=== PATIENT | male | born 2000 | race Two or more races ===

== ENCOUNTER 2020-06-20 23:31 | Emergency (ER) | payer SELFPAY ==
[~2020-06-20] VITALS: Ht 175.3 cm; Wt 82.0 kg
[2020-06-21 03:45] VITALS: BP 135/62
== END 2020-06-21 04:25 | disposition home or self-care (01) ==
LOC: ER 23:31
DX: F11.188 Opioid abuse with other opioid-induced disorder (principal); F43.0 Acute stress reaction; R00.0 Tachycardia, unspecified; I10 Essential (primary) hypertension; F12.90 Cannabis use, unspecified, uncomplicated
CPT/HCPCS: 93005; 99281

== ENCOUNTER 2020-08-07 22:30 | Emergency (ER) | payer OTHER ==
[~2020-08-07] VITALS: Ht 175.3 cm; Wt 95.0 kg
[2020-08-07 23:30] VITALS: BP 121/69
== END 2020-08-07 23:37 ==
LOC: ER 22:30
DX: Z02.89 Encounter for other administrative examinations (principal); F11.10 Opioid abuse, uncomplicated; F12.10 Cannabis abuse, uncomplicated; R03.0 Elevated blood-pressure reading, without diagnosis of hypertension
CPT/HCPCS: 99283

== ENCOUNTER 2020-12-04 12:25 | Emergency (ER) | payer OTHER, SELFPAY ==
[~2020-12-04] VITALS: Ht 182.9 cm; Wt 86.0 kg
[2020-12-04 13:06] VITALS: BP 125/59
[2020-12-04] MEDS ORDERED: ACETAMINOPHEN 325MG TABLET PO STA (13:08)
[2020-12-04] MEDS ORDERED: PIPERACILLIN/TAZ 3.375G PREMIX 50 ML IV ONE (13:15)
[2020-12-04 13:19] LABS: HEMATOCRIT. 36.9 % (42.0-52.0); HEMOGLOBIN. 12.3 g/dL (14.0-18.0); MEAN CORPUSCULAR HEMOGLOBIN 28.7 pg (28.0-32.0); MEAN CORPUSCULAR VOLUME 86.2 fL (80.0-94.0); MEAN PLATELET VOLUME 8.2 fl (7.4-10.4); PLATELET 289 x1000/uL (130-400); RED BLOOD CELL COUNT 4.28 mill/uL (4.7-6.1); RED CELL DISTRIBUTION WIDTH 13.2 % (11.6-14.6)
[2020-12-04 13:22] LABS: CHLORIDE 101 mEq/L (98-107)
[2020-12-04 13:26] LABS: INR 1.1; PROTHROMBIN TIME 11.6 sec (9.6-11.0)
[2020-12-04] MEDS ORDERED: ONDANSETRON HCL 4MG/2ML INJ IV ONE (13:30)
[2020-12-04 13:43] LABS: PLATELET ESTIMATE NORMAL
[2020-12-04] MEDS ORDERED: SODIUM CHLORIDE 0.9% 1,000 ML IV ONE (13:45)
[2020-12-04] MEDS ORDERED: POTASSIUM CHLORIDE 20MEQ TABLET SR PO NR (14:15)
== END 2020-12-04 14:29 | disposition left against medical advice (07) ==
LOC: ER 12:25 → CANBEDREQ 16:14
DX: A41.9 Sepsis, unspecified organism (principal); E87.6 Hypokalemia; Z20.822 Contact with and (suspected) exposure to COVID-19
CPT/HCPCS: 36415; 71045; 80053; 82728; 83690; 84145; 84484; 85025; 85610; 86140; 96374; 99291; J2405; Z7610

== ENCOUNTER 2021-03-01 03:26 | Emergency (ER) | payer SELFPAY ==
[~2021-03-01] VITALS: Ht 177.8 cm; Wt 82.0 kg
[2021-03-01 03:40] VITALS: BP 144/88
[2021-03-01] MEDS ORDERED: NALO4SPR BOTHNSTRLS (05:04)
== END 2021-03-01 05:15 ==
LOC: ER 03:31
DX: F11.10 Opioid abuse, uncomplicated (principal); F12.10 Cannabis abuse, uncomplicated
CPT/HCPCS: 99283

== ENCOUNTER 2021-04-21 15:33 | Emergency (ER) | payer SELFPAY ==
[~2021-04-21] VITALS: Ht 170.2 cm; Wt 82.0 kg
[~2021-04-21 15:33] MED LIST: NALO4SPR BOTHNSTRLS
[2021-04-21 15:34] VITALS: BP 136/86
[2021-04-21] MEDS ORDERED: SODIUM CHLORIDE 0.9% 1,000 ML IV ONE (15:45)
[2021-04-21 16:09] LABS: CLARITY URINE CLEAR (CLEAR); COLOR URINE YELLOW (YELLOW); KETONES URINE NEGATIVE (NEGATIVE); LEUKOCYTE ESTERASE URINE NEGATIVE (NEGATIVE); NITRITE URINE NEGATIVE (NEGATIVE); OCCULT BLOOD URINE NEGATIVE (NEGATIVE); PROTEIN URINE 1+ (NEGATIVE); SPECIFIC GRAVITY URINE 1.026 (1.005-1.030); UROBILINOGEN URINE 0.2 E.U./dL (0.2-1.0)
[2021-04-21 16:32] LABS: *AMPHETAMINES SCREEN URINE NEGATIVE (NEGATIVE); *BARBITURATES SCREEN URINE NEGATIVE (NEGATIVE); *BENZODIAZEPINES SCREEN URINE NEGATIVE (NEGATIVE); *COCAINE SCREEN URINE NEGATIVE (NEGATIVE); METHADONE URINE SCREEN NEGATIVE (NEGATIVE); OPIATES URINE SCREEN NEGATIVE (NEGATIVE)
[2021-04-21 16:33] LABS: CANNABINOID URINE SCREEN NEGATIVE (NEGATIVE); PHENCYCLIDINE URINE SCREEN NEGATIVE (NEGATIVE)
== END 2021-04-21 16:37 | disposition left against medical advice (07) ==
LOC: ER 15:33
DX: F19.10 Other psychoactive substance abuse, uncomplicated (principal); F12.10 Cannabis abuse, uncomplicated
CPT/HCPCS: 80305; 81003; 93005; 99284; J7030

== ENCOUNTER 2021-08-09 21:06 | Emergency (ER) | payer SELFPAY ==
[~2021-08-09] VITALS: Ht 167.6 cm; Wt 70.0 kg
[2021-08-09 21:18] VITALS: BP 150/100
[2021-08-10] MEDS ORDERED: NALO4SPR BOTHNSTRLS (00:39)
== END 2021-08-10 05:08 | disposition home or self-care (01) ==
LOC: ER 21:06
DX: R51.9 Headache, unspecified (principal); Z91.81 History of falling; F11.10 Opioid abuse, uncomplicated; R03.0 Elevated blood-pressure reading, without diagnosis of hypertension
CPT/HCPCS: 99283

== ENCOUNTER 2021-11-19 03:22 | Emergency (ER) | payer SELFPAY ==
[~2021-11-19] VITALS: Ht 172.7 cm; Wt 71.0 kg
[2021-11-19 03:32] VITALS: BP 132/82
== END 2021-11-19 04:00 ==
LOC: ER 03:22
DX: M25.512 Pain in left shoulder (principal); R03.0 Elevated blood-pressure reading, without diagnosis of hypertension
CPT/HCPCS: 99283

== ENCOUNTER 2021-12-23 19:35 | Emergency (ER) | payer SELFPAY ==
[~2021-12-23] VITALS: Ht 172.7 cm; Wt 73.0 kg
[2021-12-23 19:36] VITALS: BP 135/85
== END 2021-12-23 21:11 | disposition left against medical advice (07) ==
LOC: ER 19:35
DX: T40.2X1A Poisoning by other opioids, accidental (unintentional), initial encounter (principal); R06.09 Other forms of dyspnea; F11.229 Opioid dependence with intoxication, unspecified; Y92.018 Other place in single-family (private) house as the place of occurrence of the external cause
CPT/HCPCS: 99283

== ENCOUNTER 2021-12-28 06:30 | Emergency (ER) | payer SELFPAY ==
[~2021-12-28] VITALS: Ht 177.8 cm; Wt 100.0 kg
[2021-12-28 09:08] LABS: BASOPHILS % 0.3 % (0.0-2.0); EOSINOPHILS % 0.4 % (0.0-5.0); HEMATOCRIT. 36.8 % (42.0-52.0); HEMOGLOBIN. 12.8 g/dL (14.0-18.0); LYMPHOCYTES % 11.8 % (20.0-50.0); MEAN CORPUSCULAR HEMOGLOBIN 31.1 pg (28.0-32.0); MEAN CORPUSCULAR VOLUME 89.2 fL (80.0-94.0); MEAN PLATELET VOLUME 7.8 fl (7.4-10.4); MONOCYTES % 9.3 % (2.0-8.0); NEUTROPHILS % 78.2 % (40.0-76.0); PLATELET 244 x1000/uL (130-400); RED BLOOD CELL COUNT 4.13 mill/uL (4.7-6.1); RED CELL DISTRIBUTION WIDTH 14.6 % (11.6-14.6)
[2021-12-28 09:12] LABS: CHLORIDE 100 mEq/L (98-107)
[2021-12-28 09:20] LABS: ETHANOL BLOOD < 10 mg/dL
[2021-12-28 10:15] LABS: CLARITY URINE CLEAR (CLEAR); COLOR URINE YELLOW (YELLOW); KETONES URINE NEGATIVE (NEGATIVE); LEUKOCYTE ESTERASE URINE NEGATIVE (NEGATIVE); NITRITE URINE NEGATIVE (NEGATIVE); OCCULT BLOOD URINE NEGATIVE (NEGATIVE); PROTEIN URINE 1+ (NEGATIVE); UROBILINOGEN URINE 0.2 E.U./dL (0.2-1.0)
[2021-12-28 10:59] LABS: *AMPHETAMINES SCREEN URINE PRESUMTIVE POSITIVE (NEGATIVE); *BARBITURATES SCREEN URINE NEGATIVE (NEGATIVE); *BENZODIAZEPINES SCREEN URINE NEGATIVE (NEGATIVE); *COCAINE SCREEN URINE NEGATIVE (NEGATIVE); CANNABINOID URINE SCREEN NEGATIVE (NEGATIVE); METHADONE URINE SCREEN NEGATIVE (NEGATIVE); OPIATES URINE SCREEN NEGATIVE (NEGATIVE); PHENCYCLIDINE URINE SCREEN NEGATIVE (NEGATIVE)
[2021-12-28] MEDS ORDERED: NALO4SPR BOTHNSTRLS (12:18)
[2021-12-28 16:56] VITALS: BP 116/68
== END 2021-12-28 17:01 | disposition home or self-care (01) ==
LOC: ER 06:30
DX: T40.411A Poisoning by fentanyl or fentanyl analogs, accidental (unintentional), initial encounter (principal); R07.89 Other chest pain; F11.129 Opioid abuse with intoxication, unspecified; F15.10 Other stimulant abuse, uncomplicated; F17.210 Nicotine dependence, cigarettes, uncomplicated; Y93.89 Activity, other specified; Y92.488 Other paved roadways as the place of occurrence of the external cause
CPT/HCPCS: 36415; 71045; 80053; 80305; 80320; 81003; 85025; 99285; G0480

== ENCOUNTER 2021-12-31 19:09 | Emergency (ER) | payer SELFPAY ==
[~2021-12-31] VITALS: Ht 172.7 cm; Wt 73.0 kg
[2021-12-31 19:17] VITALS: BP 138/83
[2021-12-31] MEDS ORDERED: SODIUM CHLORIDE 0.9% 1,000 ML IV ONE (19:45)
== END 2021-12-31 19:26 | disposition left against medical advice (07) ==
LOC: ER 19:14
DX: T40.411A Poisoning by fentanyl or fentanyl analogs, accidental (unintentional), initial encounter (principal); R41.82 Altered mental status, unspecified; F11.129 Opioid abuse with intoxication, unspecified; Y92.89 Other specified places as the place of occurrence of the external cause; Z88.0 Allergy status to penicillin; F12.90 Cannabis use, unspecified, uncomplicated
CPT/HCPCS: 99281; J7030

== ENCOUNTER 2022-01-13 23:48 | Emergency (ER) | payer MEDICAID ==
[~2022-01-13] VITALS: Ht 177.8 cm; Wt 91.0 kg
[2022-01-14 02:27] LABS: CHLORIDE 107 mEq/L (98-107)
[2022-01-14 02:31] LABS: BASOPHILS % 0.4 % (0.0-2.0); EOSINOPHILS % 0.1 % (0.0-5.0); HEMATOCRIT. 35.1 % (42.0-52.0); LYMPHOCYTES % 12.8 % (20.0-50.0); MEAN CORPUSCULAR HEMOGLOBIN 30.3 pg (28.0-32.0); MEAN CORPUSCULAR VOLUME 88.9 fL (80.0-94.0); MEAN PLATELET VOLUME 7.9 fl (7.4-10.4); MONOCYTES % 9.5 % (2.0-8.0); NEUTROPHILS % 77.2 % (40.0-76.0); PLATELET 287 x1000/uL (130-400); RED BLOOD CELL COUNT 3.95 mill/uL (4.7-6.1); RED CELL DISTRIBUTION WIDTH 13.9 % (11.6-14.6)
[2022-01-14 02:35] LABS: ETHANOL BLOOD < 10 mg/dL
[2022-01-14] MEDS ORDERED: ACETAMINOPHEN 500MG TABLET PO ONE (03:00)
[2022-01-14 03:21] LABS: CLARITY URINE CLEAR (CLEAR); COLOR URINE DARK YELLOW (YELLOW); KETONES URINE NEGATIVE (NEGATIVE); LEUKOCYTE ESTERASE URINE NEGATIVE (NEGATIVE); NITRITE URINE NEGATIVE (NEGATIVE); OCCULT BLOOD URINE NEGATIVE (NEGATIVE); PROTEIN URINE 2+ (NEGATIVE); SPECIFIC GRAVITY URINE 1.027 (1.005-1.030); UROBILINOGEN URINE 0.2 E.U./dL (0.2-1.0)
[2022-01-14 03:47] VITALS: BP 100/60
[2022-01-14] MEDS ORDERED: NALO4SPR BOTHNSTRLS (04:00)
[2022-01-14 04:10] LABS: *AMPHETAMINES SCREEN URINE NEGATIVE (NEGATIVE); *BARBITURATES SCREEN URINE NEGATIVE (NEGATIVE); *BENZODIAZEPINES SCREEN URINE NEGATIVE (NEGATIVE); *COCAINE SCREEN URINE NEGATIVE (NEGATIVE); CANNABINOID URINE SCREEN PRESUMTIVE POSITIVE (NEGATIVE); METHADONE URINE SCREEN NEGATIVE (NEGATIVE); OPIATES URINE SCREEN NEGATIVE (NEGATIVE); PHENCYCLIDINE URINE SCREEN NEGATIVE (NEGATIVE)
== END 2022-01-14 04:29 | disposition home or self-care (01) ==
LOC: ER 23:48
DX: T40.411A Poisoning by fentanyl or fentanyl analogs, accidental (unintentional), initial encounter (principal); F11.129 Opioid abuse with intoxication, unspecified; R41.82 Altered mental status, unspecified; R03.0 Elevated blood-pressure reading, without diagnosis of hypertension; F12.90 Cannabis use, unspecified, uncomplicated; Y92.017 Garden or yard in single-family (private) house as the place of occurrence of the external cause
CPT/HCPCS: 36415; 80053; 80305; 80320; 81003; 85025; 99283; G0480

== ENCOUNTER 2023-05-11 14:58 | Emergency (ER) | payer MEDICAID ==
[~2023-05-11] VITALS: Ht 175.3 cm; Wt 64.0 kg
[2023-05-11 15:10] VITALS: BP 142/80; PULSE 104; RESP 16; TEMP 97.8; O2SAT 97
[2023-05-11] MEDS: CLONIDINE 0.1MG TABLET PO ONE (15:15)
[2023-05-11] MEDS: ONDANSETRON 4MG ODT PO ONE (15:15)
[2023-05-11 15:39] LABS: BASOPHILS % 0.3 % (0.0-2.0); HEMATOCRIT. 37.7 % (42.0-52.0); HEMOGLOBIN. 12.8 g/dL (14.0-18.0); LYMPHOCYTES % 16.2 % (20.0-50.0); MEAN CORPUSCULAR VOLUME 85.3 fL (80.0-94.0); MEAN PLATELET VOLUME 7.7 fl (7.4-10.4); MONOCYTES % 3.8 % (2.0-8.0); NEUTROPHILS % 79.7 % (40.0-76.0); PLATELET 295 x1000/uL (130-400); RED BLOOD CELL COUNT 4.42 mill/uL (4.7-6.1); WHITE BLOOD COUNT 6.6 x1000/uL (4.5-11.0)
[2023-05-11 15:56] LABS: ALANINE AMINOTRANSFERASE 11 IU/L (10-49); ALBUMIN 4.9 g/dL (3.2-4.8); ASPARTATE AMINOTRANSFERASE 20 IU/L (<34); BILIRUBIN TOTAL 1.8 mg/dL (0.1-1.0); CALCIUM 9.3 mg/dL (8.7-10.4); CARBON DIOXIDE 30 mEq/L (21-32); CHLORIDE 101 mEq/L (98-107); CREATININE 0.8 mg/dL (0.6-1.3); GLUCOSE 118 mg/dL (70-105); POTASSIUM 3.7 mEq/L (3.5-5.1); PROTEIN TOTAL 7.2 g/dL (6.0-8.3); SODIUM 136 mEq/L (136-145); UREA NITROGEN BLOOD 9 mg/dL (9-23)
[2023-05-11 16:03] LABS: ETHANOL BLOOD < 10 mg/dL (<10)
== END 2023-05-11 16:41 | disposition home or self-care (01) ==
LOC: ER 14:58
DX: F11.23 Opioid dependence with withdrawal (principal); F12.10 Cannabis abuse, uncomplicated; Z88.0 Allergy status to penicillin; Z98.890 Other specified postprocedural states
CPT/HCPCS: 80053; 80320; 83690; 85025; 36415; 99283; Q0162; Z7610; G0480

== ENCOUNTER 2023-05-11 18:38 | Emergency (ER) | payer MEDICAID ==
[~2023-05-11] VITALS: Ht 175.3 cm; Wt 66.0 kg
[2023-05-11 18:45] VITALS: BP 162/101; PULSE 91; RESP 12
== END 2023-05-11 20:43 | disposition left against medical advice (07) ==
LOC: ER 18:38
DX: F11.23 Opioid dependence with withdrawal (principal); F12.10 Cannabis abuse, uncomplicated; F15.10 Other stimulant abuse, uncomplicated; Z88.0 Allergy status to penicillin
CPT/HCPCS: 71045; 99283; Z7610 ×2

== ENCOUNTER 2023-05-12 04:35 | Emergency (ER) | payer MEDICAID ==
[~2023-05-12] VITALS: Ht 172.7 cm; Wt 69.0 kg
[2023-05-12] MEDS: HALOPERIDOL LACTATE 5MG/ML VIAL IM ONE (06:11)
[2023-05-12] MEDS: SODIUM CHLORIDE 0.9% 1,000 ML IV ONE (06:12)
[2023-05-12] MEDS: DIPHENHYDRAMINE 50MG/ML VIAL IV ONE (06:12)
[2023-05-12] MEDS: MIDAZOLAM HCL 2 MG/2 ML VIAL IV ONE (06:12)
[2023-05-12] MEDS: ONDANSETRON HCL 4MG/2ML INJ IV ONE (06:12)
[2023-05-12 06:59] LABS: BASOPHILS % 0.3 % (0.0-2.0); HEMATOCRIT. 43.2 % (42.0-52.0); HEMOGLOBIN. 14.8 g/dL (14.0-18.0); LYMPHOCYTES % 10.9 % (20.0-50.0); MEAN CORPUSCULAR HEMOGLOBIN 29.5 pg (28.0-32.0); MEAN CORPUSCULAR HGB CONC 34.2 g/dL (31.0-37.0); MEAN CORPUSCULAR VOLUME 86.2 fL (80.0-94.0); MEAN PLATELET VOLUME 7.9 fl (7.4-10.4); MONOCYTES % 6.2 % (2.0-8.0); NEUTROPHILS % 82.6 % (40.0-76.0); PLATELET 366 x1000/uL (130-400); RED BLOOD CELL COUNT 5.01 mill/uL (4.7-6.1); RED CELL DISTRIBUTION WIDTH 13.1 % (11.6-14.6); WHITE BLOOD COUNT 11.5 x1000/uL (4.5-11.0)
[2023-05-12 07:26] LABS: ACETAMINOPHEN < 2 ug/mL (10-30); ALANINE AMINOTRANSFERASE 15 IU/L (10-49); ALBUMIN 5.6 g/dL (3.2-4.8); ASPARTATE AMINOTRANSFERASE 21 IU/L (<34); CALCIUM 10.3 mg/dL (8.7-10.4); CARBON DIOXIDE 28 mEq/L (21-32); CHLORIDE 103 mEq/L (98-107); CREATININE 0.9 mg/dL (0.6-1.3); GLUCOSE 119 mg/dL (70-105); POTASSIUM 3.5 mEq/L (3.5-5.1); SODIUM 139 mEq/L (136-145); UREA NITROGEN BLOOD 11 mg/dL (9-23)
[2023-05-12 07:34] LABS: ETHANOL BLOOD < 10 mg/dL (<10)
[2023-05-12 07:45] VITALS: O2SAT 100
[2023-05-12 15:00] VITALS: BP 128/48; PULSE 72; RESP 15
== END 2023-05-12 18:45 | disposition home or self-care (01) ==
LOC: ER 04:38
DX: T40.2X1A Poisoning by other opioids, accidental (unintentional), initial encounter (principal); F12.10 Cannabis abuse, uncomplicated; Z88.0 Allergy status to penicillin; Z98.890 Other specified postprocedural states; Y92.9 Unspecified place or not applicable
CPT/HCPCS: 80053; 80307; 80320; 85025; 96372; 96374; 96375; 99285; J1200; J1630; J2250; J2405; J7030; Z7610; G0480

== ENCOUNTER 2023-07-28 10:27 | Emergency (ER) | payer MEDICAID ==
[~2023-07-28] VITALS: Ht 177.8 cm; Wt 82.0 kg
[2023-07-28 10:29] VITALS: O2SAT 97
[2023-07-28] MEDS: IBUPROFEN 800MG TABLET PO ONE (11:10)
[2023-07-28 11:14] VITALS: BP 136/72; PULSE 96; RESP 20; TEMP 98.4
== END 2023-07-28 11:16 ==
LOC: ER 10:27
DX: F15.10 Other stimulant abuse, uncomplicated (principal); R00.0 Tachycardia, unspecified; F12.10 Cannabis abuse, uncomplicated; F11.10 Opioid abuse, uncomplicated
CPT/HCPCS: 99283; Z7610 ×2